=== PATIENT | female | born 1950 | race Caucasian/White ===

== ENCOUNTER → 2022-03-22 | Outpatient (CLI) | payer MEDICARE, BC ==
[2022-03-22 17:37] LABS: BASO % 0.7 % (0.0-2.0); EOS # 0.1 K/mm3 (0.0-0.7); EOS % 2.4 % (0.0-4.0); GRAN # 2.7 K/mm3 (1.4-6.5); GRAN % 63.6 % (42.2-75.2); HEMOGLOBIN 11.8 g/dl (12.5-16.0); LYMPH # 1.1 K/mm3 (1.2-3.4); LYMPH % 25.2 % (20.0-51.0); MEAN CELL VOLUME 104 fl (80.0-100.0); MEAN CORPUSCULAR HEMOGLOBIN 33 pg (27-31); MEAN CORPUSCULAR HGB CONC 32 g/dl (33.0-37.0); MEAN PLATELET VOLUME 10.8 fl (7.4-10.4); MONO # 0.3 K/mm3 (0.1-0.6); MONO % 7.9 % (1.7-9.3); PLATELET COUNT 245 K/mm3 (130-400); RED BLOOD COUNT 3.56 M/mm3 (4.10-5.30); REDCELL DISTRIBUTION WIDTH-CV 12.4 % (11.5-14.5)
[2022-03-22 17:59] LABS: ALBUMIN 3.5 gm/dL (3.4-4.8); BILIRUBIN,TOTAL 0.3 mg/dL (0.2-1.2); CALCIUM 9.2 mg/dL (8.4-10.2); CREATININE, serum 0.7 mg/dL (0.57-1.11); POTASSIUM 4.6 mmol/L (3.5-4.5); TOTAL PROTEIN 7.1 gm/dL (6.2-8.1); VALPROIC ACID (DEPAKENE) 31.2 ug/mL (43.5-90.5)
[2022-03-22 18:38] LABS: THYROID STIMULATING HORMONE 2.16 uIU/mL (0.350-4.940)
== END ==
LOC: ZCOL.LAB 17:00
PROVIDERS: Internal Medicine
DX: Z51.81 Encounter for therapeutic drug level monitoring (principal); R84.9 Unspecified abnormal finding in specimens from respiratory organs and thorax